=== PATIENT | female | born 1995 | race Caucasian/White ===

== ENCOUNTER 2021-02-18 16:08 | Emergency (ER) | payer MEDICAID, SELFPAY ==
[~2021-02-18] VITALS: Ht 154.9 cm; Wt 51.7 kg
[2021-02-18 16:58] VITALS: BP_SYST 112
--- NOTE | 2021-02-18 17:00 | NUR ---
Patient to TENT1 to gown for evaluation. Side rails up.
--- NOTE | 2021-02-18 17:10 | NUR ---
PT PRESENTS TO ED WITH NO SPECIFIC COMPLAINT, PT REPORTS POSSIBLE CHEST PAIN AND CONGESTION. PT ISLAS DIFFICULTY EXPRESSING PROBLEMS.PT HAS FLIGHT OF IDEAS. PT HAS NO ACUTE DISTRESS NOTED.
--- NOTE | 2021-02-18 19:00 | NUR ---
ER at bedside examining patient.
--- NOTE | 2021-02-18 20:58 | NUR ---
Patient given written and verbal discharge instructions and verbalizes understanding. ER MD discussed with patient the results and treatment provided. Patient in stable condition. ID arm band removed. no Rx of given. Patient educated on pain management and to follow up with PMD. Pain Scale 0/10. Opportunity for questions provided and answered. Medication side effect fact sheet provided.
[2021-02-18 20:59] VITALS: BP_SYST 114
== END 2021-02-18 20:59 | disposition home or self-care (01) ==
LOC: SED 16:08
DX: R06.00 Dyspnea, unspecified (principal); R53.83 Other fatigue
CPT/HCPCS: 71045; 93005; 99283